=== PATIENT | female | born 1955 ===

== ENCOUNTER 2024-10-07 08:15 | Inpatient (IN) | payer OTHER ==
[~2024-10-07] VITALS: Ht 160 cm; Wt 44.9 kg
[2024-10-07 08:04] VITALS: BP 170/80
[2024-10-07 08:12] LABS: BASO % 0.4 % (0.1-1.2); EOS # 0.04 (0.04-0.54); EOS % 0.4 % (0.7-7.0); LYMPH # 1.97 (1.18-3.74); LYMPH % 21.8 % (19.3-53.1); MEAN PLATELET VOLUME 12.10 fl (9.4-12.4); MONO # 0.44 (0.24-0.82); MONO % 4.9 % (4.7-12.5); NEUT # 6.52 (1.56-6.13); NEUT % 72.1 % (34.0-71.1); RED CELL DISTRIBUTION WIDTH 15.7 % (11.6-14.4)
[~2024-10-07 08:15] MED LIST: COZAAR100 MG PO; FEOSOL325 MG PO; KEPPRA750 MG PO; LIRICA; METFORMIN HCL1000 MG; SIMVASTATIN5 MG; SINGULAIR10 MG PO; SYNTHROID100 MCG PO; TOPROL XL100 M1 PO
[2024-10-07 08:23] LABS: URINE APPEARANCE Clear; URINE BILIRRUBIN Negative (NEGATIVE); URINE BLOOD Trace; URINE COLOR Yellow; URINE GLUCOSE Negative (NEGATIVE); URINE KETONE Trace (NEGATIVE); URINE LEUKOCYTE Trace; URINE NITRATE Negative; URINE PROTEIN Negative (NEGATIVE); URINE UROBILINOGEN 0.2 E.U./dl
[2024-10-07 08:27] LABS: URINE BACTERIA 4446.0 uL (0.0-1933); URINE CAST 1.75 uL (0.0-1.40); URINE EPITHELIAL CELLS 5.9 uL (0.0-38.8); URINE RBC 4.5 uL (0.0-20.8); URINE WBC 20.1 uL (0.0-23.2)
[2024-10-07 08:38] LABS: COVID-19 AG NEGATIVE (NEGATIVE)
[2024-10-07 08:52] LABS: INR 0.95
[2024-10-07 09:26] LABS: BUN CREA RATIO 12.0 (7.0-25.0); CREATININE SERUM 0.73 mg/dL (0.55-1.02); GFR 79.05; GLUCOSE FASTING 147.0 mg/dL (65-100); OSMOLALITY SERUM 284.0 MOSM/KG (275-295)
[2024-10-07 09:27] LABS: ALT/SGPT 40.0 U/L (12-78); AST/SGOT 20.0 U/L (15-37); BILIRUBIN TOTAL 0.5 mg/dL (0.3-1.2); GLOBULINA 3.0 G/DL (2.4-3.5)
[2024-10-15 09:26] LABS: RH POSITIVE
[2024-10-15] MEDS ORDERED: ONDANSETRON HCL 2 MG/ML VIAL IV PRN (18:30)
[2024-10-15] MEDS ORDERED: MORPHINE SULFATE 4 MG/ML CARTRIDGE IV PRN (18:30)
[2024-10-15] MEDS ORDERED: SODIUM CHLORIDE 0.45 % 1,000 ML IV SCH (18:30)
[2024-10-15] MEDS ORDERED: OxyCODONE HCL 5 MG TABLET (ROXICODONE) PO PRN (18:30)
[2024-10-15] MEDS ORDERED: VANCOMYCIN HCL 1,000 MG in 0.9 % SODIUM CHLORIDE 250 ML IV SCH (21:00)
[2024-10-16] MEDS ORDERED: ACETAMINOPHEN 500 MG GEL..CAP PO SCH
[2024-10-16] MEDS ORDERED: GABAPENTIN 300 MG CAPSULE PO SCH (01:00)
[2024-10-16 02:40] VITALS: BP 128/72
[2024-10-16 06:45] LABS: BASO % 0.3 % (0.1-1.2); EOS # 0.04 (0.04-0.54); EOS % 0.6 % (0.7-7.0); LYMPH # 1.38 (1.18-3.74); LYMPH % 20.7 % (19.3-53.1); MEAN PLATELET VOLUME 13.40 fl (9.4-12.4); MONO # 0.51 (0.24-0.82); MONO % 7.6 % (4.7-12.5); NEUT # 4.71 (1.56-6.13); NEUT % 70.5 % (34.0-71.1); RED CELL DISTRIBUTION WIDTH 15.2 % (11.6-14.4)
[2024-10-16] MEDS ORDERED: ELIQUIS2.5 MG PO (08:33)
[2024-10-16] MEDS ORDERED: APIXABAN 2.5 MG TABLET PO SCH (09:00)
[2024-10-16] MEDS ORDERED: SENNOSIDES 1 TAB TABLET PO SCH (09:00)
[2024-10-16 09:02] VITALS: BP 144/70
[2024-10-16] MEDS ORDERED: Cyanocobalamin/Mecobalamin 1 TAB.SL SL SCH (14:13)
[2024-10-16 15:43] LABS: COVID-19 AG NEGATIVE (NEGATIVE)
[2024-10-16 16:34] LABS: ALT/SGPT 28.0 U/L (12-78); AST/SGOT 22.0 U/L (15-37); BILIRUBIN TOTAL 0.85 mg/dL (0.3-1.2); BUN CREA RATIO 16.0 (7.0-25.0); CREATININE SERUM 0.73 mg/dL (0.55-1.02); GFR 79.05; GLOBULINA 2.4 G/DL (2.4-3.5); GLUCOSE FASTING 129.0 mg/dL (65-100); OSMOLALITY SERUM 281.0 MOSM/KG (275-295)
[2024-10-16] MEDS ORDERED: SOD FERRIC GLUC COMPLX/SUCROSE 62.5 MG/5 ML AMPUL IV SCH (17:00)
[2024-10-16 17:45] VITALS: BP 144/56
[2024-10-17 00:40] VITALS: BP 138/72
[2024-10-17 08:00] VITALS: BP 157/65
[2024-10-17] MEDS ORDERED: IRON FUM,PS/FOLIC ACID/VITC/B3 1 CAP CAPSULE PO SCH (09:00)
[2024-10-17 09:24] LABS: BASO % 0.3 % (0.1-1.2); EOS # 0.02 (0.04-0.54); EOS % 0.2 % (0.7-7.0); LYMPH # 2.13 (1.18-3.74); LYMPH % 22.4 % (19.3-53.1); MEAN PLATELET VOLUME 13.60 fl (9.4-12.4); MONO # 1.02 (0.24-0.82); MONO % 10.7 % (4.7-12.5); NEUT # 6.28 (1.56-6.13); NEUT % 65.9 % (34.0-71.1); RED CELL DISTRIBUTION WIDTH 15.4 % (11.6-14.4)
[2024-10-17] MEDS ORDERED: METOPROLOL SUCCINATE 100 MG TAB.SR.24H PO SCH (13:00)
[2024-10-17] MEDS ORDERED: LOSARTAN POTASSIUM 100 MG TABLET PO SCH (13:00)
[2024-10-17] MEDS ORDERED: VANCOMYCIN HCL 1,000 MG VIAL IV SCH (17:00)
[2024-10-17] MEDS ORDERED: PATIENTS OWN MEDICATION (MEDICAMENTO EN PISO) PO SCH (17:00)
[2024-10-17 19:24] VITALS: BP 131/71
== END 2024-10-17 21:19 | DRG 470 ==
LOC: SURH 10-15 08:15 → O/R 10-15 10:00 → SURH 10-15 12:30 → OB/GYN 10-15 17:20
PROVIDERS: ADMIT Orthopaedic Surgery; ATTEND Orthopaedic Surgery
PROC: 0MNN0ZZ Release Right Knee Bursa and Ligament, Open Approach (ICD-10-PCS; 2024-10-15)
PROC: 0QUD0KZ Supplement Right Patella with Nonautologous Tissue Substitute, Open Approach (ICD-10-PCS; 2024-10-15)
PROC: 0QUD0JZ Supplement Right Patella with Synthetic Substitute, Open Approach (ICD-10-PCS; 2024-10-15)
PROC: 0SRC0JZ Replacement of Right Knee Joint with Synthetic Substitute, Open Approach (ICD-10-PCS; principal; 2024-10-15 12:30)
DX: M17.11 Unilateral primary osteoarthritis, right knee (principal); D62 Acute posthemorrhagic anemia; M81.0 Age-related osteoporosis without current pathological fracture; E11.9 Type 2 diabetes mellitus without complications; I10 Essential (primary) hypertension; G40.909 Epilepsy, unspecified, not intractable, without status epilepticus; E66.9 Obesity, unspecified; E03.9 Hypothyroidism, unspecified; M25.562 Pain in left knee; Z96.651 Presence of right artificial knee joint; M22.11 Recurrent subluxation of patella, right knee; Z68.34 Body mass index [BMI] 34.0-34.9, adult